=== PATIENT | male | born 1950 | race Caucasian/White ===

== ENCOUNTER 2016-11-07 03:30 | Emergency (ER) ==
[2016-11-07 03:30] VITALS: BMI 35.3
[2016-11-07 03:42] VITALS: BP 130/83; TEMP 101.4
[2016-11-07 05:03] LABS: FLU INTERNAL QC INTERNAL QC VALID; RAPID FLU A NEGATIVE (NEGATIVE); RAPID FLU B NEGATIVE (NEGATIVE)
[2016-11-07] MEDS ORDERED: LIDOCAINE 1 % AMP 5 ML (SUTURES) IM STA (05:15)
[2016-11-07] MEDS ORDERED: DECADRON 4 MG/ML SDV IM STA (05:15)
[2016-11-07] MEDS ORDERED: ROCEPHIN IM STA (05:15)
--- NOTE | 2016-11-07 05:19 | ED.PDOC ---
General ED Provider: Dr. FABRICE STAPLES-ER Chief Complaint: Fever Stated Complaint: kelly had a fever and cough since yesterday[facility] Time Seen by Physician: 03:40 Mode of Arrival: Walk-In Information Source: Patient Exam Limitations: No limitations Primary Care Provider: SHU PACHECO Nursing and Triage Documentation Reviewed and Agree: Yes Respiratory Complaint Exam - Respiratory Complaint/Exam Onset/Duration: 24hrs Symptoms Are: Still present Timing: Intermittent Initial Severity: Mild Current Severity: Mild Location: Nose, Chest Character: Reports: Productive cough Aggravating: Reports: URI Alleviating: Reports: None Associated Signs and Symptoms: Reports: Fever, URI, Nasal congestion. Denies: Rapid breathing, Dyspnea, Chills, Chest pain, Pleuritic chest pain, Wheezing, Hemoptysis, Dizziness, Calf pain, Calf swelling, Edema, Hoarseness, Sinus discomfort, Vomiting, Sore throat, Weight loss, Decreased oral intake, Increased thirst, Increased appetite, Increased urination Related History: Reports: Similar episode History of Healthcare-Acquired Pneumonia: No Pulmonary Embolism Risk Factors: None Status Asthmaticus Risk Factors: Reports: None Home Oxygen Use: No Recent Stress Test: No Recent Echo/LV Function: No Current Antibiotic Use: No Current Asthma Medication Use: No Respiratory Distress: None Inadequate Respiratory Effort: No Dysphagia Present: No Stridor Present: No JVD Present: No Accessory Muscle Use: No Retractions: Not Present Diminished Breath Sounds: No Sinus Tenderness: None Grunting Respirations: No Kussmaul Respirations: No Differential Diagnoses: Bronchitis Review of Systems - Review Of Systems Constitutional: Reports: Fever Eyes: Reports: No symptoms Ears, Nose, Mouth, Throat: Reports: No symptoms Respiratory: Reports: Cough Cardiac: Reports: No symptoms GI: Reports: No symptoms : Reports: No symptoms Musculoskeletal: Reports: No symptoms Skin: Reports: No symptoms Neurological: Reports: No symptoms Endocrine: Reports: No symptoms Hematologic/Lymphatic: Reports: No symptoms All Other Systems: Reviewed and Negative Past Medical History - Past Medical History Previously Healthy: No Endocrine: Reports: None, DM 2 Cardiovascular: Reports: Hypertension Respiratory: Reports: COPD Hematological: Reports: None Gastrointestinal: Reports: None Genitourinary: Reports: Other (BPH) Neuro/Psych: Reports: None Musculoskeletal: Reports: None Cancer: Reports: None - Surgical History General Surgical History: Reports: Other (colon resection, skin cancer surgery) - Family History Family History: Reports: None - Social History Smoking Status: Former smoker Hx Substance Use: No Alcohol Screening: None Lives: With family - Immunizations Tetanus Shot up to Date: Yes Physical Exam - Physical Exam Appearance: Well-appearing, No pain distress, Well-nourished Eyes: BARI, EOMI, Conjunctiva clear ENT: Ears normal, Nose normal, Oropharynx normal Respiratory: Airway patent, Rhonchi Cardiovascular: RRR, Pulses normal, No rub, No murmur GI/: Soft, Nontender, No masses, Bowel sounds normal, No Organomegaly Musculoskeletal: Normal strength, ROM intact, No edema, No calf tenderness Skin: Warm, Dry, Normal color Neurological: Sensation intact, Motor intact, Reflexes intact, Cranial nerves intact, Alert, Oriented Psychiatric: Affect appropriate, Mood appropriate Critical Care Note - Critical Care Note Total Time (mins): 0 Course - Course Orders, Labs, Meds: Lab Review 11/07/16 04:00 Influenza A (Rapid) Negative Influenza B (Rapid) Negative Orders Category Date Time Status FLU A & B RAPID TEST [RAPID FLU A/B] Stat LAB 11/07/16 04:00 Completed MOLECULAR GROUP A STREP Stat LAB 11/07/16 04:00 Results STREP SCREEN Stat LAB 11/07/16 04:00 Results Ceftriaxone Sodium [Rocephin] MEDS 11/07/16 05:15 Stat 1 gm IM ONCE STA Dexamethasone 4 mg/ml Inj [Decadron 4 mg/ml Sdv] MEDS 11/07/16 05:15 Stat 4 mg IM ONCE STA Lidocaine HCl/Pf [Lidocaine 1 % Amp 5 ml (Sutures)] MEDS 11/07/16 05:15 Stat 2.1 ml IM ONCE STA Vital Signs: Temp Pulse Resp BP Pulse Ox 11/07/16 03:35 101.4 F H 77 20 130/83 95 Departure - Departure Time of Disposition: 05:19 Disposition: HOME SELF-CARE Discharge Problem: Bronchitis Instructions: Acute Bronchitis (ED) Condition: Good Pt referred to PMD for follow-up: Yes Additional Instructions: augmentin 875mg bid x 10 dasy--f/u with dr pacheco in 48 hrs if not better Allergies/Adverse Reactions: Allergies No Known Allergies Allergy (Verified 11/07/16 03:43) Home Medications: Ambulatory Orders Aspirin [Aspirin EC] 81 mg PO DAILY 07/30/15 Bupropion HCl [Forfivo Xl] 450 mg PO DAILY 07/30/15 Cholecalciferol (Vitamin D3) [D3-2000] 4,000 units PO DAILY 07/30/15 Cinnamon Bark [Cinnamon] 1,000 mg PO BID 07/30/15 Metformin HCl 1,000 mg PO BID 07/30/15 Simvastatin 40 mg PO DAILY 07/30/15 Sotalol HCl [Sotalol] 40 mg PO BID 07/30/15 Tamsulosin HCl [Flomax] 0.4 mg PO DAILY 07/30/15 Triamterene/Hydrochlorothiazid [Maxzide 75 mg-50 mg Tablet] 0.5 tab PO DAILY 08/03 Vitamin B Complex & Vit C No.4 [Super B Complex] 1 tab PO DAILY 07/30/15 Mirabegron [Myrbetriq] 25 mg PO DAILY 11/07/16 Disposition Discussed With: Patient, Family
== END 2016-11-07 05:54 | disposition home or self-care (01) ==
LOC: ED 03:30
DX: J20.9 Acute bronchitis, unspecified (principal)
CPT/HCPCS: 87651; 87804; 87880; 96372; 99283

== ENCOUNTER 2017-02-10 10:31 | Outpatient (CLI) ==
--- NOTE | 2017-02-17 12:35 | HOLTER ---
PATIENT INFORMATION AND COMMENTS Indications: HYPERTENSION, ABNORMAL EKG __ Patient Medications: ASA, TRIAMTERENE, METFORMIN, SIMVASTATIN, PRAZOSIN, WELLBUTRIN, FLOMAX, BETAPACE, MYRBETRIQ __ Pre-procedure Summary: Protocol: Standard Heart Rate Started: 02/10/17 105 Minimum: 46 BPM Weight: 276 LBS Ended: 02/11/17 1053 Maximum: 113 BPM Height: 74" Duration:24 HRS Average: 64 BPM _ INTERPRETATIONS/OBSERVATIONS: 1. BASIC RHYTHM: SINUS, RATE 46BPM TO 100 BPM, AVERAGE RATE 60 BPM 2. FREQUENT PVC'S, 18% OF BEATS SCANNED. NO VENTRICULAR TACHYCARDIA 3. RARE PAC'S 4. NO ST-T WAVE CHANGES 5. NO CORRELATION WITH ACTIVITY LOG MTDD
== END 2017-02-10 10:32 | disposition home or self-care (01) ==
LOC: CAR 10:31
PROVIDERS: ATTEND Internal Medicine
DX: I10 Essential (primary) hypertension (principal); R94.31 Abnormal electrocardiogram [ECG] [EKG]; I49.3 Ventricular premature depolarization
CPT/HCPCS: 93224

== ENCOUNTER 2017-11-14 09:11 | Emergency (ER) | payer OTHER ==
[2017-11-14 09:28] VITALS: BP 135/67; TEMP 98.3; BMI 36.4
--- NOTE | 2017-11-14 09:33 | ED.PDOC ---
General ED Provider: Dr. KOFI KUMARI Chief Complaint: Respiratory Complaint Stated Complaint: Short of Air 2 weeks; wiith alternating slow and rapid heart reate and L arm pain Time Seen by Physician: 09:30 Mode of Arrival: Walk-In Information Source: Patient Primary Care Provider: SHU BRYANT Nursing and Triage Documentation Reviewed and Agree: Yes Reviewed sepsis parameters & appropriate labs ordered?: Yes System Inflammatory Response Syndrome: Not Applicable Sepsis Protocol: For patient's 13 years and over: Temp is 96.8 and below OR 101 and greater Pulse >90 BPM Resp >20/minute Acutely Altered Mental Status Are patient's symptoms suggestive of a new infection, such as: -Pneumonia -Skin, Soft Tissue -Endocarditis -UTI -Bone, Joint Infection -Implantable Device -Acute Abdominal Infection -Wound Infection -Meningitis -Blood Stream Catheter Infection -Unknown System Inflammatory Response Syndrome: Not Applicable Cardiovascular Complaint Exam - Palpitations Complaint/Exam Onset/Duration: Chronic - last 2 weeks have been more frequent with irregular events Symptoms Are: Still present Timing: Intermittent Initial Severity: Moderate Current Severity: Moderate Character: Reports: Slow, Fast, Irregular, Pounding, Skipped beats Aggravating: Reports: None Alleviating: Reports: None Associated Signs and Symptoms: Reports: Lightheadedness, Chest pain ( tightness and left arm pain) Related History: Similar episode (But not as frequent changes or intensity with the changes) Related Surgical History: Reports: None Cardiac Risk Factors: Reports: Hypertension, Diabetes, Elevated lipids Pulmonary Embolism Risk Factors: Reports: None Atrial Fibrillation Risk Factors: Reports: Hypertension Thyroid Exam: Normal Differential Diagnoses: CAD, Hypokalemia, Panic Disorder, Paroxysmal SVT Quality Indicators for AMI: EKG in 10min. Quality Indicators for Cardiac Chest Pain: EKG in 10min. Quality Indicator For Non-Traumatic Chest Pain/Syncope: EKG Performed Review of Systems - Review Of Systems Constitutional: Reports: Malaise Respiratory: Reports: Short of air (over weekend and last 2 weeks) GI: Reports: No symptoms Musculoskeletal: Reports: No symptoms All Other Systems: Reviewed and Negative Past Medical History - Past Medical History Previously Healthy: No Endocrine: Reports: None, DM 2 Cardiovascular: Reports: Hypertension Respiratory: Reports: COPD Hematological: Reports: None Gastrointestinal: Reports: None Genitourinary: Reports: Other (BPH) Neuro/Psych: Reports: None Musculoskeletal: Reports: None Cancer: Reports: None - Surgical History General Surgical History: Reports: Other (colon resection, skin cancer surgery) - Family History Family History: Reports: None - Social History Smoking Status: Former smoker Hx Substance Use: No Alcohol Screening: None Physical Exam - Physical Exam Appearance: Well-appearing Ill-appearing: None Pain Distress: None Eyes: BARI, EOMI, Conjunctiva clear ENT: Oropharynx normal Neck: Supple Respiratory: Airway patent, Breath sounds clear, Breath sounds equal Cardiovascular: RRR, Pulses normal, No murmur GI/: Soft, Nontender, Bowel sounds normal Musculoskeletal: Normal strength, ROM intact, No edema Skin: Warm, Dry, Normal color Neurological: Sensation intact, Motor intact, Alert, Oriented Psychiatric: Affect appropriate, Mood appropriate Interpretation - Radiology Interpretation Radiology Interpretation By: Radiologist Radiology Results: No acute changes Exam Interpreted: Portable CXR - EKG Interpretation Time of EKG #1: 09:55 Rate: Normal Rhythm: Sinus Ectopy: None [place]: NL ST Segment: Normal Interpretation: No acute changes Physician Notification - Case Discussed Physician Notified: Dr Bryant Time of Notification: 12:10 (Discussed admission) Physician Notified: Dr. Bryant Time of Notification: 13:20 (Pt wishes to go home; Dr. Bryant advises he will see in AM and order more labs them) Critical Care Note - Critical Care Note Total Time (mins): 40 Course - Course Hematology/Chemistry: 11/14/17 09:40 11/14/17 09:40 Orders, Labs, Meds: Lab Review 11/14/17 11/14/17 11/14/17 09:40 09:40 09:40 WBC 7.53 RBC 4.41 L Hgb 13.7 L Hct 40.4 L MCV 91.6 MCH 31.1 H MCHC 33.9 RDW Coeff of Helen 13.1 Plt Count 216 Immature Gran % (Auto) 0.4 Neut % (Auto) 62.7 Lymph % (Auto) 27.2 [place] % (Auto) 9.0 Eos % (Auto) 0.4 Baso % (Auto) 0.3 Immature Gran # (Auto) 0.0 Neut # 4.7 Lymph # 2.1 [place] # 0.7 Eos # 0.0 Baso # 0.0 Sodium 140 Potassium 3.8 Chloride 104 Carbon Dioxide 27 Anion Gap 12.8 BUN 19 H Creatinine 0.83 Estimated GFR (MDRD) 92.00 BUN/Creatinine Ratio 22.89 Glucose 116 H Calcium 9.7 Total Bilirubin 0.5 AST 15 ALT 18 Alkaline Phosphatase 75 Troponin I < 0.0100 B-Natriuretic Peptide 27 Total Protein 6.4 Albumin 3.6 Globulin 2.8 Albumin/Globulin Ratio 1.29 Orders Category Date Time Status ADMIT PATIENT INPATIENT .TO MEDSUR (MONITORED BED) ADMISSION 11/14/17 13: 13 Inactive EKG-(ED ONLY) Stat CARDIO 11/14/17 09:31 Completed GIVE HS SNACK 2100 CARE 11/14/17 13:04 Inactive INTAKE & OUTPUT Q8HR CARE 11/14/17 13:02 Inactive TELEMETRY MONITORING TELE CARE 11/14/17 13:15 Inactive BNP [B-TYPE NATRIURETIC PEPTIDE] Stat LAB 11/14/17 09:40 Completed CBC W/ AUTO DIFF Stat LAB 11/14/17 09:40 Completed COMPREHENSIVE METABOLIC PANEL Stat LAB 11/14/17 09:40 Completed TROPONIN I Stat LAB 11/14/17 09:40 Completed CHEST, 1V AP ONLY Stat RADS 11/14/17 09:31 Completed Vital Signs: Temp Pulse Resp BP Pulse Ox 11/14/17 09:12 98.3 F 42 L 20 135/67 95 SAFIA Risk Score SAFIA Risk Score: Risk Score Odds of by 30D 0 0.1 (0.1-0.2) 1 0.3 (0.2-0.3) 2 0.4 (0.3-0.5) 3 0.7 (0.6-0.9) 4 1.2 (1.0-1.5) 5 2.2 (1.9-2.6) 6 3.0 (2.5-3.6) 7 4.8 (3.8-6.1) Departure - Departure Time of Disposition: 13:12 Disposition: HOME SELF-CARE Discharge Problem: Shortness of breath Chest pain Qualifiers: Chest pain type: other chest pain Qualified Code(s): R07.89 - Other chest pain Instructions: Chest Pain (ED) Condition: Stable Pt referred to PMD for follow-up: Yes (Follow up with primary care) IPMP verified?: No (No narcotics prescribed) Additional Instructions: Follow up with Dr. Bryant tomorrow in his office at 10:15AM. Advise office that Dr. Kumari spoke with Dr. Bryant and he advised to come in the morning to his office. Return to ER if worsening symptoms or futher concerns with chest pain or arm, neck pain or shortness of breath. Allergies/Adverse Reactions: Allergies No Known Allergies Allergy (Verified 11/07/16 03:43) Home Medications: Ambulatory Orders Aspirin [Aspirin EC] 81 mg PO DAILY 07/30/15 Bupropion HCl [Forfivo Xl] 450 mg PO DAILY 07/30/15 Cholecalciferol (Vitamin D3) [D3-2000] 4,000 units PO DAILY 07/30/15 Cinnamon Bark [Cinnamon] 1,000 mg PO BID 07/30/15 Metformin HCl 1,000 mg PO BID 07/30/15 Simvastatin 40 mg PO BEDTIME 07/30/15 Sotalol HCl [Sotalol] 40 mg PO BID 07/30/15 Tamsulosin HCl [Flomax] 0.4 mg PO DAILY 07/30/15 Triamterene/Hydrochlorothiazid [Maxzide 75 mg-50 mg Tablet] 0.5 tab PO DAILY 08/03 Vitamin B Complex Vit C No.4 [Super B Complex] 1 tab PO DAILY 07/30/15 Mirabegron [Myrbetriq] 25 mg PO DAILY 11/07/16 Multivitamin [Multi-Vitamin Daily] 1 each PO DAILY 11/14/17
--- NOTE | 2017-11-14 09:55 | DI ---
EXAM: CHEST FRONTAL VIEW HISTORY: Chest pain. COMPARISON: 03/31/2009 FINDINGS: Heart size probably within normal limits. No acute infiltrates are seen. No vascular devang estion. There is no consolidation, visible pleural fluid or pneumothorax. Bones reveal no acute frac ture. IMPRESSION: No acute cardiopulmonary process.
[2017-11-14] MEDS ORDERED: SODIUM CHLORIDE 1,000 ML IV SCH (13:30)
[2017-11-14] MEDS ORDERED: BETAPACE PO SCH (21:00)
[2017-11-14] MEDS ORDERED: NON-FORMULARY MEDICATION (Metformin Hcl [Metformin Hcl] 1,000 MG) PO SCH (21:00)
[2017-11-14] MEDS ORDERED: NON-FORMULARY MEDICATION (Simvastatin [Simvastatin] 40 MG) PO SCH (21:00)
[2017-11-14] MEDS ORDERED: NON-FORMULARY MEDICATION (Cinnamon Bark [Cinnamon] 1,000 MG) PO SCH (21:00)
[2017-11-15] MEDS ORDERED: BUPROPION HCL 450 MG PO SCH (09:00)
[2017-11-15] MEDS ORDERED: VITAMIN B COMPLEX VIT C NO 4 PO SCH (09:00)
[2017-11-15] MEDS ORDERED: MYRBETRIQ PO SCH (09:00)
[2017-11-15] MEDS ORDERED: FLOMAX PO SCH (09:00)
[2017-11-15] MEDS ORDERED: MULTIVITAMIN TABLET PO SCH (09:00)
[2017-11-15] MEDS ORDERED: ASPIRIN EC PO SCH (09:00)
[2017-11-15] MEDS ORDERED: CHOLECALCIFEROL 4000 UNIT PO SCH (09:00)
== END 2017-11-14 13:37 | disposition home or self-care (01) ==
LOC: ED 09:11
DX: R06.02 Shortness of breath (principal); R07.89 Other chest pain; R42 Dizziness and giddiness; M79.602 Pain in left arm; I10 Essential (primary) hypertension; E11.9 Type 2 diabetes mellitus without complications; E78.5 Hyperlipidemia, unspecified; Z79.899 Other long term (current) drug therapy
CPT/HCPCS: 36415; 80053; 83880; 84484; 85025; 93005; 93010; 99283

== ENCOUNTER 2017-11-17 06:21 | Outpatient (CLI) | payer OTHER ==
--- NOTE | 2017-11-18 11:38 | ECHO2D ---
Date of Exam: 11/17/17 Ordering Physician: SHU BRYANT Room #: OP Reason for Echo: CHEST PAIN, PVC'S, SHORT OF BREATH, LEFT ARM PAIN M-Mode Normal Adult Results LV Dimensions Normal Adult Results AoV Opening excursions >1.6 >1.6 LVEDD-base- 3.5-5.8 5.6 Ao root dimensions 2.0-3.7 3.8 LVESD-base- 3.1-4.6 L. Atrium dimensions 1.9-3.8 5.7 Post. Wall thickness 0.8-1.1 1.3 IV septum (thickness) 0.7-1.2 1.3 Post. Wall excursion 0.72-1.3 0.7 Septal motion 0.8 Systolic motion R. Ventricular cavity 1.5-2.0 NORMAL LVEF 60% 46% Paradoxical septal wall motion NORMAL 2-D : MILDLY HYPOKINETIC LEFT VENTRICLE, ENLARGED LEFT ATRIAL CAVITY, NORMAL VALVES, NO EFFUSION, NO THROMBUS M-MODE: MV: NORMAL AV: NORMAL TV: NORMAL PV: CHAMBER SIZE: ENLARGED LEFT ATRIAL CAVITY WALL MOTION: MILDLY HYPOKINETIC LEFT VENTRICLE PERICARDIUM: NORMAL INTERPRETATION: 1. LEFT VENTRICULAR HYPERTROPHY WITH ENLARGED LEFT ATRIAL CAVITY (5.7CM) 2. LEFT VENTRICLE CAVITY (5.6CM) BORDERLINE ENLARGED 3. HYPOKINETIC LEFT VENTRICLE-MILD EF46% MTDD
== END 2017-11-17 06:22 | disposition home or self-care (01) ==
LOC: CAR 06:21
PROVIDERS: ATTEND Internal Medicine
DX: R07.9 Chest pain, unspecified (principal); R06.02 Shortness of breath; I49.3 Ventricular premature depolarization
CPT/HCPCS: 93227

== ENCOUNTER 2017-11-18 06:32 | Outpatient (CLI) ==
--- NOTE | 2017-11-18 10:43 | NM ---
Cardiac Stress Test HISTORY: Chest pain. Shortness of breath. PVCs. Pain in left arm. COMPARISON: None of this type. TECHNIQUE: Resting: The patient was injected with 12.9 mCi of 99m technetium Sestamibi (Cardiolite) intravenous ly after which a "resting" SPECT study of the heart was performed. Stress: The patient was stressed using a Miguel protocol and at the appropriate time injected with 31 .8 mCi of 99m technetium Sestamibi (Cardiolite) after which a "stress" SPECT study of the heart was p erformed. Gated images of the heart were also obtained to assess wall motion and calculate ejection f raction. For details of the stress protocol employed, reference is made to the separate report of e performing physician. FINDINGS: The stress perfusion images demonstrate a generally uniform distribution of activity in th e left ventricular myocardium. There is reduced activity in the inferior wall on both the stress and resting images which may be in part due to diaphragmatic attenuation. The resting perfusion images de monstrate no evidence of significant redistribution/ischemia. The left ventricular ejection fraction (LVEF) is 53 %. The left ventricular wall motion is within normal limits. IMPRESSION: 1. Left ventricular myocardial perfusion demonstrates no evidence of significant ischemia as discuss ed in the report. 2. The left ventricular ejection fraction (LVEF) is 53 %. 3. The left ventricular wall motion is within normal limits.
--- NOTE | 2017-11-18 10:46 | ECHOSTRESS ---
Date of Exam: 11/18/2017 Ordering Physician: SHU BRYANT Reason for Echo: CHEST PAIN, SHORT OF BREATH, PVC"S, LEFT ARM PAIN, STRESS TEST- NO ISCHEMIA M-Mode Normal Adult Results LV Dimensions Normal Adult Results AoV Opening excursions >1.6 LVEDD-base- 3.5-5.8 Ao root dimensions 2.0-3.7 LVESD-base- 3.1-4.6 L. Atrium dimensions 1.9-3.8 Post. Wall thickness 0.8-1.1 IV septum (thickness) 0.7-1.2 Post. Wall excursion 0.72-1.3 Septal motion Systolic motion R. Ventricular cavity 1.5-2.0 LVEF 60% Paradoxical septal wall motion 2-D: HYPOKINETIC LEFT VENTRICLE AT REST (MILD) WITH IMPROVED CONTRACTILITY AFTER EXERCISE M-MODE: MV: AV: TV: PV: CHAMBER SIZE: WALL MOTION: HYPOKINETIC LEFT VENTRICLE AT REST (MILD) WITH IMPROVED CONTRACTILITY AFTER EXERCISE PERICARDIUM: INTERPRETATION: 1. HYPOKINETIC LEFT VENTRICLE AT REST (MILD) WITH IMPROVED CONTRACTILITY AFTER EXERCISE. THALLIUM SCAN TO FOLLOW MTDD
--- NOTE | 2017-11-18 11:03 | STECHESEMD ---
Date of Test: 11/18/2017 Reason for Exam: CHEST PAIN, SHORT OF BREATH, PVC'S , LEFT ARM PAIN Ordering Physician: SHU BRYANT Current Medications: ASA, BUPROPION, VIT D3 , CINNAMON, METFORMIN, MYRBETRIQ, MULTI VIT, SIMVASTATIN, SOTALOL, FLOMAX, MAXIDE, VIT B COMPLEX Physical Findings: S1, S2, NO S3 Resting EKG: SINUS RHYTHM, NO ACUTE CHANGES Target Heart Rate: 128 Max Heart Rate: 151 S-T SEGMENT STAGE MPH/GRADE HEART RATE BPM BLOOD PRESSURE mmhg RHYTHM 0 +/- ELEVATION DEPRESSION SYMPTOMS,COMMENTS At Rest 60 102/82 SR X NONE 1 1.7/0% 80 118/76 SR X NONE 2 1.7/5% 100 136/80 SR X NONE 3 1.7/10% 156/86 SR X NONE 4 2.5/12% 5 3.4/14% Immediately after 125 SR X SOB Total Time: 10:01 Maximum Heart Rate Reached:Reason for Termination: SHORT OF BREATH 4 Minutes Post Exercise: HR: 75BPM BP: 130/84 SR +/- NONE INTERPRETATION: 96% O2 SATURATION WITH EXERCISE ON ROOM AIR 1. NO EVIDENCE OF ISCHEMIA BY ST-T 2. NO CHEST PAIN OR CHEST DISCOMFORT 3. PVC'S AT REST AND WITH EXERCISE 4. BLOOD PRESSURE RESPONSE NORMAL 5. MILDLY HYPOKINETIC LEFT VENTRICLE WITH IMPROVEMENT IN LEFT VENTRICULAR CONTRACTILITY WITH EXERCISE THALLIUM TO FOLLOW (THALLIUM SCAN) [facility]ITALDavid
== END 2017-11-18 06:33 | disposition home or self-care (01) ==
LOC: CAR 06:32
PROVIDERS: ATTEND Internal Medicine
DX: R07.9 Chest pain, unspecified (principal); R06.02 Shortness of breath; I49.3 Ventricular premature depolarization

== ENCOUNTER 2018-04-17 09:01 | Day surgery (SDC) ==
[2018-04-17] MEDS ORDERED: LIDOCAINE 1% 20 ML MDV ID STA (10:15)
[2018-04-17] MEDS ORDERED: DIPRIVAN 20 ML VIAL IVP ONE (11:00)
[2018-04-17 15:20] VITALS: BP 118/67; TEMP 98.6
--- NOTE | 2018-04-18 11:54 | OP ---
PROCEDURE: COLONOSCOPY TO THE CECUM. ENDOSCOPIST: [place] GIPSON M.D. INDICATION: HISTORY OF POLYPS/FAMILY HISTORY OF COLON CANCER 1ST DEGREE RELATIVE INSTRUMENT: PCFH-190. MEDICATION: PER ANESTHESIA. PROCEDURE: The patient was positioned for colonoscopy. The digital rectal exam was negative. The colonoscope was inserted through the anus and advanced to the cecum. The cecum was identified using the ileocecal valve and the appendiceal orifice as landmarks. The scope was slowly withdrawn through an adequately prepped colon. [place] Bowel Prep Score 2+2+3=7. A few scattered diverticuli were seen in the left colon. The retroflex exam was otherwise normal. The patient tolerated the procedure well without immediate complication. Withdraw time 7 minutes and 26 seconds. PLAN: 1. Suggest repeat colonoscopy in 5 years. CC: Dr. Reji HOOPER
== END 2018-04-17 11:45 | disposition home or self-care (01) ==
LOC: SURG 09:01
PROVIDERS: ATTEND Internal Medicine Gastroenterology
DX: K57.30 Diverticulosis of large intestine without perforation or abscess without bleeding (principal); Z86.010 Personal history of colon polyps; Z80.8 Family history of malignant neoplasm of other organs or systems

== ENCOUNTER 2018-10-31 04:12 | Inpatient (IN) ==
[2018-10-31] MEDS ORDERED: NITROSTAT SL PRN ×2 (04:38→05:53)
--- NOTE | 2018-10-31 05:44 | ED.PDOC ---
General ED Provider: Dr. FABRICE STAPLES-ER Chief Complaint: Chest Pain Stated Complaint: my chest hurts and my heart is beating funny Time Seen by Physician: 04:15 Mode of Arrival: Walk-In Information Source: Patient Exam Limitations: No limitations Primary Care Provider: SHU PACHECO Nursing and Triage Documentation Reviewed and Agree: Yes Does patient meet sepsis criteria?: No System Inflammatory Response Syndrome: Not Applicable Sepsis Protocol: For patient's 13 years and over: Temp is 96.8 and below OR 101 and greater Pulse >90 BPM Resp >20/minute Acutely Altered Mental Status Are patient's symptoms suggestive of a new infection, such as: -Pneumonia -Skin, Soft Tissue -Endocarditis -UTI -Bone, Joint Infection -Implantable Device -Acute Abdominal Infection -Wound Infection -Meningitis -Blood Stream Catheter Infection -Unknown Cardiovascular Complaint Exam - Chest Pain Complaint/Exam Onset: Gradual Duration: several hours Symptoms Are: Still present Timing: Constant Initial Severity: Mild Current Severity: Moderate Location: Reports: Discrete Character: Reports: Dull, Aching, Heaviness, Pressure Aggravating: Reports: None Alleviating: Reports: Rest, Nitro Associated Signs and Symptoms: Reports: Short of air. Denies: Diaphoresis, Nausea, Vomiting, Fever, Palpitations, Cough, Hemoptysis, Back pain, Abdominal pain, Dizziness, Calf pain, Calf swelling Prior Care for this Complaint: Yes Recent Stress Test: Yes Recent Echo/LV Function: Yes JVD Present: No Subcutaneous Emphysema Present: No Diminshed Breath Sounds: No Reproducible Chest Wall Pain: No Bilateral Pulses Present: Yes Unequal Pulses Noted: No If Risk Factors for AMI/ACS Consider: EKG, Cardiac Enzymes Machine Zipper Trimmer Consulted: No Differential Diagnoses: Acute KS, ACS Quality Indicator For Non-Traumatic Chest Pain/Syncope: EKG Performed Review of Systems - Review Of Systems Constitutional: Reports: No symptoms Eyes: Reports: No symptoms Ears, Nose, Mouth, Throat: Reports: No symptoms Respiratory: Reports: Short of air Cardiac: Reports: Chest pain GI: Reports: No symptoms : Reports: No symptoms Musculoskeletal: Reports: No symptoms Skin: Reports: No symptoms Neurological: Reports: No symptoms Endocrine: Reports: No symptoms Hematologic/Lymphatic: Reports: No symptoms All Other Systems: Reviewed and Negative Past Medical History - Past Medical History Previously Healthy: No Endocrine: Reports: None, DM 2 Cardiovascular: Reports: Hypertension Respiratory: Reports: COPD Hematological: Reports: None Gastrointestinal: Reports: None Genitourinary: Reports: Other (BPH) Neuro/Psych: Reports: None Musculoskeletal: Reports: None Cancer: Reports: None - Surgical History General Surgical History: Reports: Other (colon resection, skin cancer surgery) - Family History Family History: Reports: None - Social History Smoking Status: Former smoker Hx Substance Use: No Alcohol Screening: None - Immunizations Tetanus Shot up to Date: No (unsure) Physical Exam - Physical Exam Appearance: Well-appearing, No pain distress, Well-nourished Pain Distress: Mild Eyes: BARI, EOMI, Conjunctiva clear ENT: Ears normal Neck: Supple Respiratory: Airway patent, Breath sounds clear, Breath sounds equal, Respirations nonlabored Cardiovascular: RRR, Pulses normal, No rub, No murmur GI/: Soft, Nontender, No masses, Bowel sounds normal, No Organomegaly Musculoskeletal: Normal strength, ROM intact, No edema, No calf tenderness Skin: Warm, Dry, Normal color Neurological: Sensation intact, Motor intact, Reflexes intact, Cranial nerves intact, Alert, Oriented Psychiatric: Affect appropriate, Mood appropriate Interpretation - Radiology Interpretation Radiology Interpretation By: ED Physician Radiology Results: Negative Exam Interpreted: Portable CXR - EKG Interpretation Time of EKG #1: 05:45 Rate: Normal Rhythm: Sinus Ectopy: PACs [place]: NL ST Segment: Normal Re-Evaluation - Re-Evaluation Time of Re-Evaluation: 05:46 Status: Improved Vital Signs Stable: Yes Pain Level: 1 Appearance: NAD Lungs: Clear Skin: Warm and Dry Neuro: Alert and Oriented X3 CV: RRR Physician Notification - Case Discussed Physician Notified: dr pacheco Time of Notification: 05:49 Critical Care Note - Critical Care Note Total Time (mins): 0 Course - Course Hematology/Chemistry: 10/31/18 04:40 10/31/18 04:40 Orders, Labs, Meds: Lab Review 10/31/18 10/31/18 10/31/18 04:40 04:40 04:40 WBC 9.01 RBC 4.54 L Hgb 13.7 L Hct 41.3 L MCV 91.0 MCH 30.2 MCHC 33.2 RDW Coeff of Helen 12.7 Plt Count 198 Immature Gran % (Auto) 0.3 Neut % (Auto) 63.9 Lymph % (Auto) 27.6 [place] % (Auto) 7.0 Eos % (Auto) 1.0 Baso % (Auto) 0.2 Immature Gran # (Auto) 0.0 Neut # (Auto) 5.8 Lymph # (Auto) 2.5 [place] # (Auto) 0.6 Eos # (Auto) 0.1 Baso # (Auto) 0.0 D-Dimer (Manual) 371.82 Sodium 139.1 Potassium 3.46 L Chloride 99.7 Carbon Dioxide 28.5 Anion Gap 14.36 BUN 17.2 Creatinine 0.75 Estimated GFR (MDRD) 103.00 BUN/Creatinine Ratio 22.93 Glucose 122.8 H Calcium 9.77 Total Bilirubin 0.37 AST 24.4 ALT 19.8 Alkaline Phosphatase 86.6 Total Creatine Kinase 24.5 L Troponin I < 0.012 Total Protein 6.85 Albumin 4.06 Globulin 2.79 Albumin/Globulin Ratio 1.45 Orders Category Date Time Status EKG-(ED ONLY) Stat CARDIO 10/31/18 04:37 Completed ED STRESS ENGINEER APPLIED .ONCE EMERGENCY 10/31/18 04:37 Active ED IV/MEDIPORT/POWERPORT .ONCE EMERGENCY 10/31/18 04:37 Active CBC W/ AUTO DIFF Stat LAB 10/31/18 04:40 Completed COMPREHENSIVE METABOLIC PANEL Stat LAB 10/31/18 04:40 Completed CREATINE KINASE Stat LAB 10/31/18 04:40 Completed D-DIMER Stat LAB 10/31/18 04:40 Completed TROPONIN I Stat LAB 10/31/18 04:40 Completed 0.9 % Sodium Chloride [Saline Flush] MEDS 10/31/18 04:37 Ordered 1 syr IVF PRN PRN Nitroglycerin [Nitrostat] MEDS 10/31/18 04:38 Ordered 0.4 mg SL Q5MIN X 3 DOSES PRN CXR [CHEST, 1V AP ONLY] Stat RADS 10/31/18 04:56 Taken Medications Generic Name Dose Route Start Last Admin Trade Name Freq PRN Reason Stop Dose Admin Nitroglycerin 0.4 mg 10/31/18 04:38 10/31/18 04:44 Nitrostat SL 0.4 mg Q5MIN X 3 DOSES PRN Administration Chest Pain Sodium Chloride 1 syr 10/31/18 04:37 10/31/18 04:54 Saline Flush IVF 1 syr PRN PRN Administration To flush IV Vital Signs: Temp Pulse Resp BP Pulse Ox 10/31/18 04:12 98.5 F 69 20 128/75 95 SAFIA Risk Score SAFIA Risk Score: Risk Score Odds of by 30D 0 0.1 (0.1-0.2) 1 0.3 (0.2-0.3) 2 0.4 (0.3-0.5) 3 0.7 (0.6-0.9) 4 1.2 (1.0-1.5) 5 2.2 (1.9-2.6) 6 3.0 (2.5-3.6) 7 4.8 (3.8-6.1) Departure - Departure Time of Disposition: 05:50 Disposition: ADMITTED INPATIENT Discharge Problem: Chest pain Instructions: Chest Pain (ED) Condition: Good Pt referred to PMD for follow-up: Yes IPMP verified?: No Allergies/Adverse Reactions: Allergies No Known Allergies Allergy (Verified 10/31/18 04:22) Home Medications: Ambulatory Orders Aspirin [Aspirin EC] 81 mg PO DAILY 07/30/15 Bupropion HCl [Forfivo Xl] 450 mg PO DAILY 07/30/15 Cholecalciferol (Vitamin D3) [D3-2000] 4,000 units PO DAILY 07/30/15 Cinnamon Bark [Cinnamon] 1,000 mg PO BID 07/30/15 Metformin HCl 1,000 mg PO BID 07/30/15 Simvastatin 40 mg PO BEDTIME 07/30/15 Sotalol HCl [Sotalol] 40 mg PO BID 07/30/15 Tamsulosin HCl [Flomax] 0.4 mg PO DAILY 07/30/15 Triamterene/Hydrochlorothiazid [Maxzide 75 mg-50 mg Tablet] 0.5 tab PO DAILY 08/03 Mirabegron [Myrbetriq] 25 mg PO DAILY 11/07/16 Multivitamin [Multi-Vitamin Daily] 1 each PO DAILY 11/14/17 Disposition Discussed With: Patient
[2018-10-31] MEDS ORDERED: HUMULIN R SUBCUT PRN (05:54)
--- NOTE | 2018-10-31 07:09 | DI ---
EXAM: Single view of the chest. History: Chest pain. Comparison: Chest radiograph 11/14/2017 Findings: Heart size is borderline enlarged. No focal consolidation. No appreciable pleural fluid and no pneumothorax. No acute osseous abnormalities. Impression: No acute cardiopulmonary process. No change compared to the prior study.
[2018-10-31 07:25] VITALS: BMI 35.6
[2018-10-31] MEDS ORDERED: K-DUR PO STA (08:30)
--- NOTE | 2018-10-31 08:59 | PCM.PROG ---
Attending Provider: ATTENDING PROVIDER: Dr. SHU BRYANT This patient is seen with Ramona George, Nurse Practitioner. DATE OF SERVICE: 10/31/18 SUBJECTIVE: This 68 year old WHITE/ M was hospitalized 10/31/18. The patient has no chest pain this morning. All cardiac markers are negative. No cough. Having stress at home REVIEW OF SYSTEMS: CONSTITUTIONAL: No night sweats. No fatigue, malaise, lethargy. No fever or chills. HEENT: Eyes: No visual changes. No eye pain. No eye discharge. ENT: No runny nose. No epistaxis. No sinus pain. No odynophagia. No congestion. RESPIRATORY: No cough, no congestion. No hemoptysis. Shortness of breath. CARDIOVASCULAR: No angina symptoms. No CHF symptoms. No atypical chest pain for CAD. No palpitations. No orthopnea. Intermittent chest pain. GASTROINTESTINAL: No abdominal pain. No nausea or vomiting. No diarrhea or constipation. No hematemesis. No hematochezia. GENITOURINARY: No urgency. No frequency. No dysuria. No hematuria. No obstructive symptoms. No discharge. No pain. No significant abnormal bleeding. MUSCULOSKELETAL: No musculoskeletal pain; no joint swelling. NEUROLOGICAL: Awake, alert, oriented to time, place and person. No headache. No neck pain. No syncope. No seizures. No dizziness. PSYCHIATRIC: Anxious. No depression. No suicidal thoughts. No homicidal thoughts. SKIN: No rash. No lesions. No wounds. ENDOCRINE: No unexplained weight loss. No weight gain. HEMATOLOGIC/LYMPHATIC: No anemia. No purpura. No petechiae. No prolonged or excessive bleeding. No palpable lymph nodes. PHYSICAL EXAMINATION: GENERAL: The patient is awake, alert and oriented, lying in bed in no distress. VITAL SIGNS: Temperature 98.1 F, Pulse 56, Respiratory Rate 20, BP 128/75, Pulse Ox 96% HEENT: Head normocephalic, atraumatic. Eyes: Extraocular muscles are intact. Pupils are equal, round and reactive to light and accommodation. Ears: No lesions. Nose appeared normal. Throat: No exudate or erythema. NECK: Supple. No JVD, no carotid bruit. No lymphadenopathy or thyromegaly. LUNGS: Diminished breath sounds. Clear to auscultation. Percussion note normal. Chest symmetrical. HEART: S1, S2, no S3. No murmurs. No cyanosis or clubbing. No ascites. Pulses: Dorsalis pedis and posterior tibial pulses +1 to +2 both sides. ABDOMEN: Soft. Non-tender. Bowel sounds active. No CVA tenderness. No mass felt. EXTREMITIES: No edema. Full range of motion of all extremities, equal. NEUROLOGIC: No focal deficit. Cranial nerves II through XII are grossly intact. No headache, no double vision or headache. SKIN: Not dry. Intact. Turgor-normal. LYMPHATIC: No palpable lymph nodes/no lymphedema. MUSCULOSKELETAL: Normal joints with no swelling. Muscle tone is normal. LAB REVIEW: 10/31/18 04:40 10/31/18 04:40 10/31/18 04:40: D-Dimer (Manual) 371.82 10/31/18 04:40: Sodium 139.1, Potassium 3.46 L, Chloride 99.7, Carbon Dioxide 28.5, Anion Gap 14.36, BUN 17.2, Creatinine 0.75, Estimated GFR (MDRD) 103.00, BUN/Creatinine Ratio 22.93, Glucose 122.8 H, Calcium 9.77, Total Bilirubin 0.37 , AST 24.4, ALT 19.8, Alkaline Phosphatase 86.6, Total Creatine Kinase 24.5 L, Troponin I < 0.012, Total Protein 6.85, Albumin 4.06, Globulin 2.79, Albumin/ Globulin Ratio 1.45 10/31/18 04:40: WBC 9.01, RBC 4.54 L, Hgb 13.7 L, Hct 41.3 L, MCV 91.0, MCH 30.2 , MCHC 33.2, RDW Coeff of Helen 12.7, Plt Count 198, Immature Gran % (Auto) 0.3, Neut % (Auto) 63.9, Lymph % (Auto) 27.6, [place] % (Auto) 7.0, Eos % (Auto) 1.0, Baso % (Auto) 0.2, Immature Gran # (Auto) 0.0, Neut # (Auto) 5.8, Lymph # (Auto ) 2.5, [place] # (Auto) 0.6, Eos # (Auto) 0.1, Baso # (Auto) 0.0 ASSESSMENT: Please see below. 1. Chest pain 2. Diabetes mellitus type 2 3. Hypertension 4. Anxiety 5. Obesity PLAN: 1. Multiple risk factors for CAD 2. Will do echocardiogram today 3. Cardiac enzymes negative 4. Stress sestamibi tomorrow. Plan and coordination of the patient's care discussed in the presence of Blacking Wheel Tender and nurse. SCRIBED BY: Bailey GRAJEDAist scribed while in presence of service performed by Dr. Bryant/Ramona George APRN on 10/31/18 (0017)
[2018-10-31] MEDS ORDERED: BUPROPION HCL 450 MG PO SCH (09:00)
[2018-10-31] MEDS ORDERED: MYRBETRIQ PO SCH (09:00)
[2018-10-31] MEDS ORDERED: CHOLECALCIFEROL 4000 UNIT PO SCH (09:00)
[2018-10-31] MEDS: DYAZIDE PO SCH (09:37)
[2018-10-31] MEDS: VITAMIN D PO SCH (09:38)
[2018-10-31] MEDS: ASPIRIN EC PO SCH (09:38)
[2018-10-31] MEDS: BETAPACE PO SCH ×2 (09:38→21:48)
[2018-10-31] MEDS: FLOMAX PO SCH (09:38)
[2018-10-31] MEDS: LOVENOX SUBCUT SCH (09:43)
[2018-10-31] MEDS: WELLBUTRIN XL PO SCH (09:48)
--- NOTE | 2018-10-31 11:11 | US ---
EXAM: Bilateral carotid artery Doppler History: Hypertension and dizziness. Technique: Multiple sonographic images through the bilateral internal carotid arteries were obtained . Color duplex Doppler was used to interrogate vascular flow. Findings: The right ICA peak systolic velocity is within normal limits measuring 55 cm/sec. The right ICA/cca PSV ratio is normal at 0.90. The right vertebral artery is patent and demonstrates antegrade flow. Lay scale images demonstrate mild plaque buildup within the right internal carotid artery. The left ICA peak systolic velocity is within normal limits measuring 58 cm/sec. The left ICA/cca PS V ratio is normal at 0.90. The left vertebral artery is patent and demonstrates antegrade flow. Gra y scale images demonstrate mild plaque buildup within the left internal carotid artery. Impression: No significant hemodynamic stenosis of the bilateral internal carotid arteries
[2018-10-31] MEDS ORDERED: NON-FORMULARY MEDICATION (Simvastatin [Simvastatin] 40 MG) PO SCH (21:00)
[2018-10-31] MEDS ORDERED: ZOCOR PO SCH (21:00)
--- NOTE | 2018-11-01 08:00 | PN ---
DATE OF SERVICE: 10/31/18 SUBJECTIVE: The patient was hospitalized with chest pain, atypical for coronary insufficiency, kind of equivocal. The patient has several risk factors for coronary artery disease. The patient was seen and examined with the nurse practitioner. PHYSICAL EXAMINATION: HEENT: Head normocephalic, atraumatic. Eyes: Extraocular muscles are intact. Pupils are equal, round and reactive to light and accommodation. Ears: No lesions. Nose appeared normal. Throat: No exudate or erythema. NECK: Supple. No JVP, no carotid bruit. No lymphadenopathy or thyromegaly. LUNGS: Clear to auscultation. Percussion note normal. Chest symmetrical. HEART: S1, S2, no S3. No murmurs. No cyanosis or clubbing. No ascites. Pulses: Dorsalis pedis and posterior tibial pulses +2 bilaterally. ABDOMEN: Soft. Nontender. Bowel sounds active. No CVA tenderness. No mass felt. EXTREMITIES: No edema. Full range of motion of all extremities, equal. NEUROLOGIC: No focal deficit. Cranial nerves II through XII are grossly intact. No headache, no double vision or headache. SKIN: Not dry. Intact. Turgor - normal. LYMPHATIC: No palpable lymph nodes/no lymphedema. MUSCULOSKELETAL: Normal joints with no swelling. Muscle tone is normal. EKG sinus rhythm, nonspecific ST-T wave change. A couple of isolated PVCs. Cardiac markers negative. ASSESSMENT: 1. Chest pain seems to be noncardiac. Will rule out ischemia or angina, [place], coronary insufficiency. PLAN: 1. Carotid scan 2. Telemetry 3. Cardiac markers 4. Echocardiogram 5. Dobutamine or regular stress echo Sestamibi Discussed with the patient that BMI is more than 30. Counseling for diet done. Condition: Stable TIME SPENT: More than 30 minutes. Plan and coordination of the patient's care discussed in the presence of nurse. SANDIE
--- NOTE | 2018-11-01 08:13 | HP ---
DATE OF SERVICE: 10/31/18 HISTORY OF PRESENT ILLNESS: 68-year-old white male who presented to the emergency room complaining of chest pain and tightness, feels like a band across his chest. PAST MEDICAL HISTORY: Obesity Anxiety Diabetes mellitus type 2 Dyslipidemia Hypertension BPH Leg edema Urinary urgency COPD PAST SURGICAL HISTORY: Colon resection Skin cancer surgery REVIEW OF SYSTEMS: CONSTITUTIONAL: No night sweats. No fatigue, malaise, lethargy. No fever or chills. HEENT: Eyes: No visual changes. No eye pain. No eye discharge. ENT: No runny nose. No epistaxis. No sinus pain. No sore throat. No odynophagia. No ear pain. No congestion. RESPIRATORY: No cough, no congestion. No hemoptysis. CARDIOVASCULAR: Positive for shortness of breath and chest pain. No angina symptoms. No CHF symptoms. No palpitations. No PND. No orthopnea. GASTROINTESTINAL: No abdominal pain. No nausea or vomiting. No diarrhea or constipation. No hematemesis. No hematochezia. GENITOURINARY: No urgency. No frequency. No dysuria. No hematuria. No obstructive symptoms. No discharge. No pain. No significant abnormal bleeding. MUSCULOSKELETAL: No musculoskeletal pain. No joint swelling. No arthritis. NEUROLOGICAL: No headache. No neck pain. No syncope. No seizures. No dizziness. PSYCHIATRIC: Not anxious. No depression. No suicidal thoughts. No homicidal thoughts. SKIN: No rash. No lesions. No wounds. ENDOCRINE: No unexplained weight loss. No weight gain. HEMATOLOGIC/LYMPHATIC: No anemia. No purpura. No petechiae. No prolonged or excessive bleeding. No palpable lymph nodes. PERSONAL/FAMILY/SOCIAL HISTORY: The patient is a former smoker. No alcohol use. No illicit drug use. MEDICATIONS: Metformin 1,000 mg p.o. b.i.d. Sotalol 40 mg p.o. b.i.d. Flomax 0.4 mg p.o. daily Simvastatin 40 mg p.o. daily Buproprion HCI 450 mg p.o. daily Cholecalciferol (Vitamin D3) 4,000 units p.o. daily Aspirin 81 mg p.o. daily Triamterine/Hydrochlorothiazide 0.5 tab p.o. daily Cinnamon Bark 1,000 mg p.o. b.i.d. Myrbetriq 25 mg p.o. daily Multivitamin one each p.o. daily ALLERGIES: NKDA PHYSICAL EXAMINATION: GENERAL: Alert and oriented times three. VITAL SIGNS: Temperature 98.5, heart rate 69, respirations 20, BP 128/75, pulse ox 95%. HEENT: Head normocephalic, atraumatic. Eyes: Extraocular muscles are intact. Pupils are equal, round and reactive to light and accommodation. Ears: No lesions. Nose appeared normal. Throat: No exudate or erythema. NECK: Supple. No JVD, no carotid bruit. No lymphadenopathy or thyromegaly. LUNGS: Diminished breath sounds bilaterally. Clear to auscultation. Percussion note normal. Chest symmetrical. HEART: Regular rate and rhythm. S1, S2, no S3. No murmurs. No cyanosis or clubbing. No ascites. Pulses: Dorsalis pedis and posterior tibial pulses +1 to +2 bilaterally. ABDOMEN: Soft. Nontender. Bowel sounds active. No CVA tenderness. No mass felt. EXTREMITIES: No leg edema. Full range of motion of all extremities, equal. NEUROLOGIC: No focal deficit. Cranial nerves II through XII are grossly intact. No headache, no double vision or headache. SKIN: Not dry. Intact. Turgor - normal. LYMPHATIC: No palpable lymph nodes/no lymphedema. MUSCULOSKELETAL: Normal joints with no swelling. Muscle tone is normal. EKG shows normal sinus rhythm with occasional PACs. This is normal for him. White count 9.0, hemoglobin 13.7, hematocrit 41.3, platelets 198. Sodium 139, potassium 3.46, BUN 17, creatinine 0.75, glucose 122. ASSESSMENT: 1. CHEST PAIN 2. COPD 3. HYPERTENSION 4. DYSLIPIDEMIA 5. DIABETES MELLITUS TYPE 2 6. OBESITY 7. HYPOKALEMIA PLAN: 1. We will admit to Special Care Unit. 2. Routine telemetry orders. 3. Cardiac markers with serial EKGs and cardiac enzymes. 4. Chest x-ray. 5. Nitro 0.4 mg sublingual q.5 min times three doses. 6. Continue all home medications. 7. Bilateral carotid scan. 8. Oxygen at 1 to 2L. 9. Will follow closely. TIME SPENT: More than 70 minutes. [facility]
[2018-11-01] MEDS ORDERED: MYRBETRIQ PO SCH (09:00)
[2018-11-01] MEDS: BETAPACE PO SCH (10:11)
[2018-11-01] MEDS: WELLBUTRIN XL PO SCH (10:12)
[2018-11-01] MEDS: DYAZIDE PO SCH (10:12)
[2018-11-01] MEDS: LOVENOX SUBCUT SCH (10:13)
[2018-11-01] MEDS: FLOMAX PO SCH (10:13)
[2018-11-01] MEDS: ASPIRIN EC PO SCH (10:13)
[2018-11-01] MEDS: VITAMIN D PO SCH (10:15)
[2018-11-01 14:19] VITALS: BP 107/73; TEMP 98.9
--- NOTE | 2018-11-01 15:23 | NM ---
Exam: Myocardial perfusion study. Date: 11/01/2018. Comparison: None. HISTORY: Chest pressure. TECHNIQUE: The patient was exercised using the Miguel protocol the patient exercised for 9 minutes an d 8 seconds and achieved target heart rate. The examination was terminated due to shortness of breat h. The blood pressure increased from 138/70 mmHg up to 180/80 mmHg. With the patient at maximum tiny erated treadmill stress, 25 mCi of technetium 99m sestamibi was injected and SPECT myocardial perfusi on imaging begun within 60 minutes. For comparison, resting study was performed following injection of 3.5 mCi of thallium 201. The stress gated acquisition was acquired as prior study to estimate the left ventricular ejection fraction. FINDINGS: There is normal physiologic distribution of radiotracer. The LVEF is estimated at 56%. Impression: Normal study. No stress-induced ischemic changes. LVEF estimated at 56%. If evaluatio n for wall motion is needed, then echocardiography may be of value.
--- NOTE | 2018-11-02 08:27 | CM.DICTOOL ---
ADMISSION: 10/31/18 05:57 DISCHARGE: NOVEMBER 01, 2018 DATE OF SERVICE: 11/01/18 FINAL DIAGNOSIS CHEST PAIN CARDIAC ARRHYTHMIA WITH PVC'S/PAROXYSMAL SVT, INFREQUENT HYPERTENSION DIABETES MELLITUS, TYPE 2 HIGH LIPIDS OBESITY SKIN CANCER, BASAL (NOSE) SLEEP APNEA (C-PAP) COLON RESECTION LV DYSFUNCTION STRESS SESTAMIBI (11/01/2018) NO ISCHEMIA LAST VITALS Temp Pulse Resp BP Pulse Ox 98.9 F 73 18 107/73 96 11/01/18 14:00 11/01/18 14:00 11/01/18 14:00 11/01/18 14:00 11/01/18 14:00 TAKE THESE MEDICATIONS AT HOME Aspirin (Aspirin Ec) 81 mg PO DAILYWM [facility] Last Admin: 11/01/18 10:13 Dose: 81 mg Bupropion HCl (Wellbutrin Xl) 450 mg PO DAILY [facility] Last Admin: 11/01/18 10:12 Dose: 450 mg Cholecalciferol (Vitamin D) 4,000 unit PO DAILY [facility] Last Admin: 11/01/18 10:15 Dose: 4,000 unit Mirabegron (Myrbetriq) 25 mg PO EVERY OTHER DAY [facility] Last Admin: 11/01/18 10:13 Dose: 25 mg Simvastatin (Zocor) 40 mg PO BEDTIME [facility] Last Admin: 10/31/18 21:48 Dose: 40 mg Sotalol HCl (Betapace) 40 mg PO BID [facility] Last Admin: 11/01/18 10:11 Dose: 40 mg Tamsulosin HCl (Flomax) 0.4 mg PO DAILY [facility] Last Admin: 11/01/18 10:13 Dose: 0.4 mg Triamterene/HCTZ (Dyazide) 1 cap PO DAILY [facility] Last Admin: 11/01/18 10:12 Dose: 1 cap Metformin HCL 1000 mg PO [facility] BID Last Admin: ALLERGIES No Known Allergies Allergy (Verified 10/31/18 04:22) DISCONTINUED MEDICATIONS None NEW PRESCRIPTIONS: NONE SMOKING: NOT APPLICABLE DISEASE SPECIFIC EDUCATION: RISK FACTOR MODIFICATIONS WEIGHT LOSS LAB REVIEW: 11/01/18 04:15 11/01/18 04:15 11/01/18 04:15: Sodium 140.6, Potassium 3.73, Chloride 100.5, Carbon Dioxide 31.0 H, Anion Gap 12.83, BUN 18.0, Creatinine 0.84, Estimated GFR (MDRD) 90.00, BUN/Creatinine Ratio 21.42, Glucose 134.9 H, Calcium 9.41, Total Bilirubin 0.39 , AST 19.9, ALT 18.8, Alkaline Phosphatase 77.8, Total Protein 6.64, Albumin 3.94, Globulin 2.70, Albumin/Globulin Ratio 1.45 11/01/18 04:15: WBC 7.10, RBC 4.48 L, Hgb 13.5 L, Hct 41.4 L, MCV 92.4, MCH 30.1 , MCHC 32.6, RDW Coeff of Helen 12.9, Plt Count 203, Immature Gran % (Auto) 0.3, Neut % (Auto) 55.0, Lymph % (Auto) 34.2, [place] % (Auto) 9.0, Eos % (Auto) 1.1, Baso % (Auto) 0.4, Immature Gran # (Auto) 0.0, Neut # (Auto) 3.9, Lymph # (Auto ) 2.4, [place] # (Auto) 0.6, Eos # (Auto) 0.1, Baso # (Auto) 0.0 10/31/18 20:00: Total Creatine Kinase 27.0 L, Troponin I < 0.012 PLAN: DISCHARGE HOME DIET: CONSISTENT CARBOHYDRATES ACTIVITY: GRADUALLY RESUME TOLERATED HOLTER MONITOR APPLIED BEFORE DISCHARGE. PATIENT ADVISED TO WEAR X 24 HOURS, ACTIVITY LOG PROVIDED. PATIENT ADVISED TO RETURN FOR MONITOR REMOVAL IN 24 HOURS. AN APPOINTMENT IS SCHEDULED WITH DR. BRYANT ON October AT 10:30 AM PER PATIENT REQUEST CODE STATUS: DO NOT INTUBATE, CPR ONLY MR. OVIEDO IS ALERT AND ORIENTED X 3. HE IS INDEPENDENT WITH ALL ACTIVITIES OF DAILY LIVING. HE IS AMBULATORY WITHOUT STAFF ASSISTANCE OR USE OF ASSISTIVE DEVICE. MR. OVIEDO LIVES AT HOME WITH HIS SIGNIFICANT OTHER, SARWAT AND A 9 YEAR OLD GRANDDAUGHTER. MR. OVIEDO IS AGREEABLE TO DISCHARGE PLANS AND WEARING HOLTER MONITOR AT DISCHARGE. HE IS AWARE OF ACTIVITY LOG AND HAS BEEN INSTRUCTED TO RETURN HOLTER IN 24 HOURS. MEAL INTAKES ARE GOOD AT 100%. HE IS CONTINENT OF BLADDER AND BOWEL. SKIN IS INTACT AND FREE OF DECUBITUS ULCERS. SHU BRYANT MD RUDDY SOUSA APRN
--- NOTE | 2018-11-02 10:01 | PN ---
DATE OF SERVICE: 11/01/18 SUBJECTIVE: The patient was seen and examined with Nurse Practitioner. The patient's condition is stable. He had a couple of short runs of SVT with rate of 130 per minutes. He has PVC with ventricular bigeminy at times unifocal. The patient underwent Stress echo sestamibi which was negative for ischemia. The patient's PVC while less frequent with exercise. No atrial arrhythmias noted. The patient very likely has sick sinus syndromes with PVC's. Holter Monitor would be applied. PHYSICAL EXAMINATION: VITALS: Temperature 97.5, pulse 55, respiratory rate 16, blood pressure 128/82 and pulse ox 98%. HEENT: Head normocephalic, atraumatic. Eyes: Extraocular muscles are intact. Pupils are equal, round and reactive to light and accommodation. Ears: No lesions. Nose appeared normal. Throat: No exudate or erythema. NECK: Supple. No JVD, no carotid bruit. No lymphadenopathy or thyromegaly. LUNGS: Clear to auscultation. Percussion note normal. Chest symmetrical. HEART: S1, S2, no S3. No murmurs. No cyanosis or clubbing. No ascites. Pulses: Dorsalis pedis and posterior tibial pulses +1 to +2 bilaterally. ABDOMEN: Soft. Nontender. Bowel sounds active. No CVA tenderness. No mass felt. EXTREMITIES: No edema. Full range of motion of all extremities, equal. NEUROLOGIC: No focal deficit. Cranial nerves II through XII are grossly intact. No headache, no double vision or headache. SKIN: Not dry. Intact. Turgor - normal. LYMPHATIC: No palpable lymph nodes/no lymphedema. MUSCULOSKELETAL: Normal joints with no swelling. Muscle tone is normal. LABS: Hgb 13, hct 41, WBC 7,100 normal differential, creatinine 0.8, BUN 18, potassium 3.7, glucose 134. EKG no acute changes. Telemetry no ST-T wave change. Stress Echo sestamibi negative for ischemia. ASSESSMENT: 1. Chest pain noncardiac with negative cardiac markers. TIME SPENT: More than 30 minutes. Plan and coordination of the patient's care discussed in the presence of nurse. SANDIE
--- NOTE | 2018-11-02 14:41 | DS ---
DATE OF SERVICE: 11/01/18 FINAL DIAGNOSIS: 1. CHEST PAIN, ETIOLOGY NONCARDIAC 2. CARDIAC ARRHYTHMIA IN THE FORM OF PAROXYSMAL SVT, FEW SHORT RUNS WITH PVCS SOME IN THE BIGEMINY FORM, MOSTLY UNIFOCAL. 3. HYPERTENSION 4. DYSLIPIDEMIA 5. DIABETES MELLITUS, TYPE 2 6. METABOLIC SYNDROME 7. OBESITY WITH BMI OF 36 8. BPH LAST VITALS: Temperature 98.9, pulse 73, respiratory rate 18, BP 107/73, pulse ox 96 DISCHARGE INSTRUCTIONS: 1. Followup appointment is scheduled with Dr. Mendoza on 11/06/18 at 10:30 a.m. 2. Holter Monitor applied before discharge. The patient is advised to wear x24 hours. Activity log provided. Patient advised to return for monitor removal in 24 hours. 3. Per patient request, code status: Do not intubate, CPR only. MEDICATIONS AT DISCHARGE: Aspirin 81 mg p.o. daily with meal HECTOR Wellbutrin XL 450 mg p.o. daily HECTOR Cholecalciferol 4,000 unit p.o. daily HECTRO Mirabegron (Mybetriq) 25 mg p.o. every other day HECTOR Simvastatin (Zocor) 40 mg p.o. bedtime HECTOR Sotalol (Betapace) 40 mg p.o. b.i.d. HECTOR Flomax 0.4 mg p.o. daily HECTOR Dyazide one cap p.o. daily HECTOR Metformin 1000 mg p.o. HECTOR b.i.d. NEW PRESCRIPTIONS: None DISCONTINUED MEDICATIONS: None DIET INSTRUCTIONS: Consistent carbohydrates ACTIVITY: Gradually resume as tolerated SMOKING: N/A DISEASE SPECIFIC EDUCATION: Risk factor modifications Weight loss HOSPITAL COURSE: 68-year-old white male hospitalized with chest pain. The patient's chest pain was equivocal for coronary insufficiency. The patient's cardiac markers, EKGs were unchanged, normal. No evidence of acute myocardial event. The patient had cardiac arrhythmias in the form of PVCs which he has had this for a number of years. V-tach was noted. The patient had short runs of SVT, a couple of them noted during evening hours, was practically asymptomatic. The patient was advised to continue all of his medications. Advised to lose weight, advised to start cardiac rehab. The patient has metabolic syndrome. Also very likely has sleep apnea and advised sleep study. CONDITION AT TIME OF DISCHARGE: Stable. The patient's cardiac arrhythmias are asymptomatic. LABS: Hemoglobin 13, hematocrit 41, WBC 7,100, normal differential. Creatinine 0.8, BUN 18, potassium 3.7. EKG sinus rhythm, PVC, nonspecific ST-T wave change. No acute changes. Cardiac markers negative for acute LA. Estimated GFR 90 cc/min. The patient's echo showed LVH, enlarged LA cavity, borderline LV cavity enlargement. Ejection fraction 45 to 50%. Sestamibi negative for ischemia. Stress test did not reveal any ST-T wave changes with exercise. The patient's PVC is less frequent with exercise. TIME SPENT: More than 60 minutes. MTDD
--- NOTE | 2018-11-02 14:43 | PN ---
CODING FOR BILLING 10/31/18 ADMISSION DAY LEVEL 5 - 11/01/18 DISCHARGE MTDD
--- NOTE | 2018-11-06 09:34 | ECHOSTRESS ---
Date of Exam: 11/01/18 Ordering Physician: DR. SHU BRYANT Reason for Echo: CHEST PRESSURE, HTN, DM, STRESS TEST--NO ISCHEMIA M-Mode Normal Adult Results LV Dimensions Normal Adult Results AoV Opening excursions >1.6 LVEDD-base- 3.5-5.8 Ao root dimensions 2.0-3.7 LVESD-base- 3.1-4.6 L. Atrium dimensions 1.9-3.8 Post. Wall thickness 0.8-1.1 IV septum (thickness) 0.7-1.2 Post. Wall excursion 0.72-1.3 Septal motion Systolic motion R. Ventricular cavity 1.5-2.0 LVEF 60% Paradoxical septal wall motion 2-D: HYPOKINETIC LEFT VENTRICLE, MILD WITH IMPROVED LEFT VENTRICULAR CONTRACTILITY WITH EXERCISE M-MODE: MV: AV: TV: PV: CHAMBER SIZE: WALL MOTION: HYPOKINETIC LEFT VENTRICLE, MILD WITH IMPROVED LEFT VENTRICULAR CONTRACTILITY WITH EXERCISE PERICARDIUM: INTERPRETATION: 1. HYPOKINETIC LEFT VENTRICLE, MILD WITH IMPROVED LEFT VENTRICULAR CONTRACTILITY WITH EXERCISE MTDD
--- NOTE | 2018-11-06 09:44 | STECHESEMD ---
Date of Test: 11/01/18 Ordering Physician: DR. SHU BRYANT Occupation: RETIRED Reason for Exam: CHEST PRESSURE, HTN, DM Smoking History: FORMER SMOKER Height: 74" Weight: 277 LBS Current Medications: METFORMIN, SOTALOL, FLOMAX, SIMVASTATIN, FORFIVO XL, ASA, MAXZIDE, MYRBETRIQ Target Heart Rate: 127 S-T SEGMENT STAGE MPH/GRADE HEART RATE BPM BLOOD PRESSURE mmhg RHYTHM +/- ELEVATION DEPRESSION SYMPTOMS At Rest 63 BPM 138/72 MMHG SR X NONE 1 1.7/0% 80 BPM 160/80 MMHG SR X NONE 2 1.7/5% 96 BPM 180/80 MMHG SR X NONE 3 1.7/10% 4 2.5/12% 5 3.4/14% Immediately after 106 BPM SR X SHORT OF AIR Minutes Post Exercise 4:00 71 BPM 122/68 MMHG SR X NONE Minutes Post Exercise DURATION OF EXERCISE: 9:08 MAXIMUM HEART RATE REACHED: 106 BPM REASON FOR TERMINATION: SHORT OF AIR 96% OXYGEN SATURATION WITH EXERCISE ON ROOM AIR INTERPRETATION: 1. NO EVIDENCE OF ISCHEMIA FROM RESTING HEART RATE 63 BPM TO 106 BPM POST EXERCISE 2. NO CHEST PAIN OR DISCOMFORT 3. LESS FREQUENT PVC'S WITH EXERCISE/ PVC'S ISOLATED AT REST 4. BLOOD PRESSURE RESPONSE: ADEQUATE HYPODYNAMIC LEFT VENTRICLE AT REST/ IMPROVED LEFT VENTRICULAR CONTRACTILITY WITH EXERCISE SESTAMIBI TO FOLLOW MTDD
--- NOTE | 2018-11-06 10:06 | ECHO2D ---
Date of Exam: 10/31/18 Ordering Physician: DR. SHU BRYANT Room #: [id number] Reason for Echo: CHEST PRESSURE/HYPERTENSION/DM M-Mode Normal Adult Results LV Dimensions Normal Adult Results AoV Opening excursions >1.6 >1.6 LVEDD-base- 3.5-5.8 5.8 Ao root dimensions 2.0-3.7 3.8 LVESD-base- 3.1-4.6 L. Atrium dimensions 1.9-3.8 5.5 Post. Wall thickness 0.8-1.1 1.1 IV septum (thickness) 0.7-1.2 1.2 Post. Wall excursion 0.72-1.3 NORMAL Septal motion NORMAL Systolic motion R. Ventricular cavity 1.5-2.0 NORMAL LVEF 60% 45% Paradoxical septal wall motion NORMAL 2-D : ENLARGED LEFT ATRIAL CAVITY--MILDLY HYPOKINETIC LEFT VENTRICLE-- BORDERLINE LEFT VENTRICLE SIZE--NORMAL VALVES, NO EFFUSION, NO THROMBUS M-MODE: MV: NORMAL AV: NORMAL TV: NORMAL PV: CHAMBER SIZE: ENLARGED LEFT ATRIAL SIZE--BORDERLINE LEFT VENTRICLE SIZE WALL MOTION: HYPOKINETIC LEFT VENTRICLE (MILD) PERICARDIUM: NORMAL INTERPRETATION: 1. LEFT VENTRICULAR HYPERTROPHY WITH ENLARGED LEFT ATRIAL CAVITY(5.5 CM) 2. MILDLY HYPOKINETIC LEFT VENTRICLE--EJECTION FRACTION 45% 3. NORMAL VALVES MTDD
--- NOTE | 2018-11-06 10:23 | HOLTER ---
PATIENT INFORMATION AND COMMENTS Attending Physician: DR. SHU BRYANT Indications: CHEST PRESSURE __ Patient Medications: ASA, WELLBUTRIN, LOVENOX, HUMULIN R, MYRBETRIQ, NITROSTAT , ZOCOR, BETAPACE, FLOMAX __ Pre-procedure Summary: Protocol: Standard Heart Rate Started: 11/01/18 1550 Minimum: 49 BPM Weight: 277 LBS Ended: 11/02/18 1550 Maximum: 157 BPM Height: 74" Duration: 24 HOURS Average: 72 BPM _ INTERPRETATIONS/OBSERVATIONS: 1. BASIC RHYTHM: SINUS, RATE 50 BPM TO 140 BPM, AVERAGE 70 BPM 2. FEW SHORT RUNS OF SVT WITH RATE 130 BPM --MOSTLY NONSUSTAINED 3. PVC'S--11% OF BEATS SCANNED, FEW COUPLETS AND SALVOS 4. INFREQUENT PAC'S 5. NO ST-T WAVE CHANGES FROM BASELINE 6. NO CORRELATION WITH ACTIVITY LOG MTDD
== END 2018-11-01 16:05 | disposition home or self-care (01) | DRG 310 ==
LOC: ED 04:12 → SCU 05:57
PROVIDERS: ADMIT Internal Medicine; ATTEND Internal Medicine
DX: I49.9 Cardiac arrhythmia, unspecified (principal); R06.02 Shortness of breath; I10 Essential (primary) hypertension; E78.5 Hyperlipidemia, unspecified; E11.9 Type 2 diabetes mellitus without complications; E88.81 Metabolic syndrome and other insulin resistance; E66.9 Obesity, unspecified; N40.0 Benign prostatic hyperplasia without lower urinary tract symptoms; E87.6 Hypokalemia; J44.9 Chronic obstructive pulmonary disease, unspecified; F41.9 Anxiety disorder, unspecified; Z68.36 Body mass index [BMI] 36.0-36.9, adult
CPT/HCPCS: 36415; 80053; 82550; 82962; 84484; 85025; 85379; 87081; 93005; 93010; 93227; 99284